=== PATIENT | female | born 1995 | race African-American/Black ===

== ENCOUNTER 2020-10-22 08:45 | Emergency (ER) | payer OTHER, MEDICAID ==
[~2020-10-22] VITALS: Ht 167.6 cm; Wt 55.0 kg
[2020-10-22] MEDS ORDERED: ACETAMINOPHEN 325MG TABLET PO ONE (09:00)
[2020-10-22] MEDS ORDERED: SODIUM CHLORIDE 0.9% 1,000 ML IV ONE (09:00)
[2020-10-22 09:33] LABS: CLARITY URINE CLEAR (CLEAR); COLOR URINE YELLOW (YELLOW); KETONES URINE NEGATIVE (NEGATIVE); LEUKOCYTE ESTERASE URINE 1+ (NEGATIVE); NITRITE URINE NEGATIVE (NEGATIVE); OCCULT BLOOD URINE NEGATIVE (NEGATIVE); PROTEIN URINE NEGATIVE (NEGATIVE); SPECIFIC GRAVITY URINE 1.019 (1.005-1.030); UROBILINOGEN URINE 0.2 E.U./dL (0.2-1.0)
[2020-10-22 09:34] LABS: CHLORIDE 109 mEq/L (98-107); HEMATOCRIT. 32.5 % (36.0-48.0); HEMOGLOBIN. 11.3 g/dL (12.0-16.0); MEAN CORPUSCULAR HEMOGLOBIN 30.8 pg (28.0-32.0); MEAN CORPUSCULAR VOLUME 88.8 fL (81.0-99.0); MEAN PLATELET VOLUME 9.6 fl (7.4-10.4); PLATELET 184 x1000/uL (130-400); RED BLOOD CELL COUNT 3.66 mill/uL (4.2-5.4); RED CELL DISTRIBUTION WIDTH 16.3 % (11.6-14.6)
[2020-10-22 09:55] LABS: *AMPHETAMINES SCREEN URINE NEGATIVE (NEGATIVE); *BARBITURATES SCREEN URINE NEGATIVE (NEGATIVE); *BENZODIAZEPINES SCREEN URINE NEGATIVE (NEGATIVE)
[2020-10-22 09:56] LABS: *COCAINE SCREEN URINE NEGATIVE (NEGATIVE); METHADONE URINE SCREEN NEGATIVE (NEGATIVE); OPIATES URINE SCREEN NEGATIVE (NEGATIVE); PHENCYCLIDINE URINE SCREEN NEGATIVE (NEGATIVE)
[2020-10-22 09:57] LABS: CANNABINOID URINE SCREEN PRESUMTIVE POSITIVE (NEGATIVE)
[2020-10-22 10:01] LABS: B-HCG QUANTITATIVE 12159 mIU/mL (<3)
[2020-10-22 10:23] LABS: PLATELET ESTIMATE NORMAL
[2020-10-22 10:31] VITALS: BP 124/65
== END 2020-10-22 11:31 ==
LOC: ER 09:03
DX: O26.892 Other specified pregnancy related conditions, second trimester (principal); F12.10 Cannabis abuse, uncomplicated; J45.909 Unspecified asthma, uncomplicated; Z3A.18 18 weeks gestation of pregnancy
CPT/HCPCS: 36415; 76705; 76805; 80053; 80305; 81003; 81025; 84702; 85025; 86850; 86900; 86901; 96360; 99285; J7030